=== PATIENT | male | born 1985 | race Caucasian/White ===

== ENCOUNTER 2017-06-30 14:56 | Outpatient (CLI) | payer MEDICAID ==
--- NOTE | 2017-07-01 09:09 | XRAY Report ---
LUMBAR SPINE: 06/30/2017 COMPARISON STUDY: None. INDICATION: Low back pain, chronic. TECHNIQUE: Four views of the lumbar spine. FINDINGS: There are five lumbar-type vertebrae. Alignment appears normal. There is no evidence of acute fracture. There are no appreciable degenera tive changes. A clip overlies the right lower quadrant. IMPRESSION: ESSENTIALLY NEGATIVE LUMBAR SPINE. JOB #: [id number] EXT JOB #:[id number]
== END 2017-06-30 14:57 | disposition home or self-care (01) ==
LOC: DI.S 14:56
PROVIDERS: ATTEND Nurse Practitioner Family
DX: M54.5 Low back pain (principal)
CPT/HCPCS: 72110